=== PATIENT | male | born 1955 | race Caucasian/White ===

== ENCOUNTER 2018-12-28 19:17 | Emergency (ER) | payer SELFPAY ==
[~2018-12-28] VITALS: Ht 170.2 cm; Wt 88.2 kg
[~2018-12-28 19:17] MED LIST: LISI10TA2 PO
[2018-12-28 19:26] VITALS: BP 159/81; PULSE 89; RESP 18; Ht 170.2 cm; Wt 88.2 kg
== END 2018-12-28 19:48 | disposition left against medical advice (07) ==
LOC: FTE 19:17
DX: Z53.21 Procedure and treatment not carried out due to patient leaving prior to being seen by health care provider (principal)